=== PATIENT | female | born 1950 | race Caucasian/White ===

== ENCOUNTER 2022-03-24 15:42 | Emergency (ER) | payer MEDICARE, SELFPAY ==
[2022-03-24 15:56] VITALS: BP 169/106; PULSE 66; RESP 22; TEMP 36.9; O2SAT 98; BMI 26.6
--- NOTE | 2022-03-24 16:38 | CRLHL7_ITS ---
For Patients: As a result of the Century Cures Act, medical imaging exams and procedure reports are released immediately into your electronic medical record. You may view this report before your referring provider. If you have questions, please contact your health care provider. Indication: Neck Pain Technique: Volumetric multidetector CT images of the cervical spine were obtained without the administration of IV contrast. Comparison: None available. Findings: The cervical vertebral body heights are grossly maintained with congenital versus surgical fusion of the C5, C6 and C7 levels. There is straightening of the normal cervical lordosis with minimal anterolisthesis of C3 on C4 and C4 on C5. There is no displaced fracture or dislocation. There is mild multilevel degenerative disc disease with disc height loss and marginal osteophyte formation at the C3-C4 and C4-C5 levels. There is moderate to severe degenerative change of the atlantoaxial joint. There is moderate to severe facet arthrosis. The paraspinous soft tissues are grossly within normal limits. Impression: Demonstration of likely prior surgical versus congenital fusion of the C5, C6 and C7 levels. Mild straightening of the normal cervical lordosis without evidence of displaced fracture. Moderate to severe facet arthrosis. Please note that all CT scans at this facility use dose modulation, iterative reconstruction, and/or weight-based dosing when appropriate to reduce radiation dose to as low as reasonably achievable. Dictated by Stephen Huffman MD @ 03/24/2022 6:04:11 PM (Electronically Signed)
--- NOTE | 2022-03-24 16:38 | CRLHL7_ITS ---
For Patients: As a result of the Century Cures Act, medical imaging exams and procedure reports are released immediately into your electronic medical record. You may view this report before your referring provider. If you have questions, please contact your health care provider. INDICATION: Positive D-dimer. TECHNIQUE: CT chest PE was acquired with 95 cc Isovue 370 IV contrast. COMPARISON: None. FINDINGS: Heart and vasculature: Contrast opacification of the pulmonary arterial tree is adequate. No sign of pulmonary embolism. Heart size is normal. Thoracic aorta and pulmonary artery are normal in caliber. Lungs and pleura: No suspicious nodules or infiltrates. Scattered dependent atelectasis tiny 3 millimeter right upper lobe pulmonary nodule. No pleural effusions, pleural thickening, or pneumothorax. Lymph nodes/mediastinum: Mildly prominent right hilar lymph node, likely reactive. Mildly prominent left axillary lymph node. No mediastinal, hilar, or axillary adenopathy. Chest wall: No masses. Upper abdomen: No acute or significant findings. Bones: Degenerative changes of the osseous structures, including the spine. IMPRESSION: No pulmonary embolism as questioned. Tiny 3 millimeter right upper lobe pulmonary nodule. Consider follow-up chest CT in 12 months if patient is deemed high-risk, suggests significant smoking history. Nonspecific mildly prominent left axillary lymph node. Recommend correlation with physical exam. Please note that all CT scans at this facility use dose modulation, iterative reconstruction, and/or weight-based dosing when appropriate to reduce radiation dose to as low as reasonably achievable. Dictated by Kenrick Sanchez MD @ 03/24/2022 5:59:56 PM (Electronically Signed)
[2022-03-24] MEDS: KETOROLAC 30 MG/ML inj IVP (16:54)
[2022-03-24] MEDS: HYDROmorphone 0.5 mg/0.5 ml inj IVP (18:11)
--- NOTE | 2022-03-24 19:15 | ED_ITS ---
HPI - General Adult General Chief complaint: Chest Pain Stated complaint: Short of Breath Time Seen by Provider: 03/24/22 16:29 History of Present Illness HPI narrative: Pt is a 72 year old who recently recovered from COVID 19 who presented to the clinic today with chest and neck pain. Workup in the clinic was unremarkable with the exception of an elevaed D dimer. Pt was sent over for a CT of the chest which is negative for PE. Pt states that her neck is sore as well due to extensive coughing. Pt's CT of the cervical spine also negative for acute fractures or disk herniations. Pt states the pain is diffuse with no orthopnea or PND. It was not felt to be Cardiac in nature. Pt states the pain has been present the last few days. She has been taking tylenol and motrin as needed with no effect. No other significant symptoms. Related Data Home Medications Medication Instructions Recorded Confirmed No Known Home Medications 03/24/22 03/24/22 Allergies Allergy/AdvReac Type Severity Reaction Status Date / Time codeine AdvReac Severe Insomnia Verified 03/24/22 17:06 Review of Systems Status of ROS: Reports: 10 or more systems reviewed and unremarkable except as noted in History and below PFSH PFS Social History Smoking Status: Never smoker Non-prescribed substance use: denies use Exam Narrative: Exam Narrative: EXAM GENERAL: Patient appears comfortable and well. EYES: No scleral icterus. THYROID: no thyroid nodules or thyromegaly. LYMPH: No supraclavicular or cervical lymphadenopathy. SKIN: Visible skin seen during exam normal or with benign process only. EXT: No dependent lower extremity pedal edema. HEART: Regular rate and rhythm with no murmurs, rubs, or gallops. LUNGS: Clear to auscultation bilaterally with no crackles or wheezes. ABD: Soft, non tender, non distended. PSYCH: Good eye contact, speech is not pressured. Const: Vital Signs, click to edit/add: Vital Signs - 24 hr 03/24/22 15:56 Temperature 98.4 F Pulse Rate [Right Pulse Oximeter] 66 Respiratory Rate 22 Blood Pressure [Ri ght Upper Arm] 169/106 H Pulse Oximetry 98 Oxygen Delivery Me thod Room Air Course Course Hospital Course: CT of the chest and cerical spine reviewed with pt. She feels comfortable that no further workup is done. Vital Signs Vital signs: Initial Vital Signs Temperature 98.4 F 03/24/22 15:56 Temperature Source Temporal Artery Scan 03/24/22 15:56 Pulse Rate 66 03/24/22 15:56 Respiratory Rate 22 03/24/22 15:56 Blood Pressure 169/106 H 03/24/22 15:56 Blood Pressure Mean 127 03/24/22 15:56 Blood Pressure Position Sitting 03/24/22 15:56 Pulse Oximetry 98 03/24/22 15:56 Oxygen Delivery Method 03/24/22 15:56 Vital Signs Temperature 98.4 F 03/24/22 15:56 Pulse Rate 66 03/24/22 15:56 Respiratory Rate 22 03/24/22 15:56 Blood Pressure 169/106 H 03/24/22 15:56 Pulse Oximetry 98 03/24/22 15:56 Oxygen Delivery Method 03/24/22 15:56 Temperature 98.4 F 03/24/22 15:56 Pulse Rate 66 03/24/22 15:56 Respiratory Rate 22 03/24/22 15:56 Blood Pressure 169/106 H 03/24/22 15:56 Pulse Oximetry 98 03/24/22 15:56 Oxygen Delivery Method 03/24/22 15:56 Discharge Plan Discharge Clinical Impression: Chest wall pain Patient Disposition: Home, Self-Care Condition: Stable Instructions: Chest Pain (ED) Additional Instructions: [place] as directed Follow up with your doctor as needed Activity Level: No Restrictions Discharge Diet: Regular Prescriptions: No Action No Known Home Medications Follow Up/Referrals: Jamie Bell PA-C [Primary Care Provider] - Stand Alone Forms: MyHealth Info Instructions
== END 2022-03-24 19:33 | disposition home or self-care (01) ==
PROVIDERS: Emergency Provider Internal Medicine; PCP Physician Assistant Medical
DX: R07.89 Other chest pain (principal)
CPT/HCPCS: 71260; 72125; 80053; 80061; 85379; 86141; 96374; 96375; 99283; 99284; J1170; J1885; Q9967

== ENCOUNTER 2022-03-25 20:01 | Emergency (ER) | payer MEDICARE, SELFPAY ==
[2022-03-25 20:38] VITALS: BP 186/84; PULSE 89; RESP 18; TEMP 36; O2SAT 96; BMI 26.6
[2022-03-25 23:43] VITALS: BP 171/91; PULSE 98; O2SAT 96
--- NOTE | 2022-03-26 00:21 | ED_ITS ---
HPI - General Adult General Time Seen by Provider: 00:21 Date Seen: 03/26/22 Chief complaint: Shoulder Injury/Pain Stated complaint: Pain Time Seen by Provider: 03/25/22 23:34 Source: patient and family Mode of arrival: ambulatory Limitations: no limitations History of Present Illness HPI narrative: 72-year-old female who comes in with right neck and arm pain. This is been going on for couple of days. She says COVID and was coughing a lot. Two days ago developed right neck and shoulder pain radiating to the right arm. Was seen at clinic 2 days ago, labs were done and found to have elevated D-dimer. Sent to the emergency department where CT PE protocol was negative. Patient was given on added with improvement of her pain but returned. Took [place] but did have some vomiting with this. Went to clinic yesterday and was re-evaluated CVA IM Toradol with some relief. Also started baclofen and prednisone. Has continued to have pain and so returns to the emergency department. It is sharp pain in the forearm going up to the neck. No relieving or exacerbating factors. Feels like the right hand is weak. Related Data Previous Rx's Medication Instructions Recorded baclofen 5 mg tablet 5 mg PO Q12H #10 tabs 03/25/22 hydrocodone 5 mg-acetaminophen 325 See Rx Instructions PO Q8H PRN 03/25/22 mg tablet pain #30 tabs ondansetron 8 mg disintegrating 8 mg PO Q8-12H PRN nausea and 03/25/22 tablet vomiting 4 days #12 tabs prednisone 10 mg tablets in a dose See Rx Instructions PO .COMPLEX 03/25/22 pack #21 ea Allergies Allergy/AdvReac Type Severity Reaction Status Date / Time codeine AdvReac Severe Insomnia Verified 03/25/22 20:44 Review of Systems Status of ROS: Reports: 10 or more systems reviewed and unremarkable except as noted in History and below PFSH PFSH Social History Smoking Status: Never smoker Non-prescribed substance use: denies use Exam Narrative: Exam Narrative: General: well nourished , NAD Head: Atraumatic and normocephalic ENT: External ears and external nose are normal Eyes: Conjunctiva clear, pupils are equal reactive, external ocular motions are intact Neck: Full spontaneous range of motion of the neck Lungs: No respiratory distress Musculoskeletal: Tenderness of the right trapezius and inferior cervical paraspinous musculature. Neurologic: No gross focal neurologic deficits. Sensation of the right upper extremity intact, manager supplier strength is intact. Skin: No rashes Psych: Mood and affect are appropriate Const: Vital Signs, click to edit/add: Vital Signs - 24 hr 03/25/22 20:38 03/25/22 23:43 Temperature 96.8 F L Pulse Rate [Right Pulse Oximeter] 89 98 Respiratory Rate 18 Blood Pressure [Ri ght Upper Arm] 186/84 H 171/91 H Pulse Oximetry 96 96 Oxygen Delivery Me thod Room Air Room Air Course Course Hospital Course: Patient seen examined, prior records are reviewed. Patient with right neck and arm pain for the last couple of days. On exam, sensation of the right upper extremities intact. Slight weakness of manager supplier although effort is poor, observation only patient moves the arm without difficulty. Symptoms are most consistent with cervical radiculopathy. Patient has already started prednisone, and has had two doses of Toradol. Daughter who is with her is requesting methadone, we discussed that for acute pain this would not be an appropriate starting medication. They are also wondering about admission for pain manag ement. We discussed the Critical bed shortage state wide and that no beds are available except for critically ill patients give fentanyl IM as well as oral Dilaudid and Zofran with goal of adequate pain control for discharge. Patient would benefit from physical therapy and further cervical imaging at some point but this does not need to be done emergently. Reevaluation(s) Reevaluation #1: Patient is requesting discharge. Time: 01:18 Vital Signs Vital signs: Initial Vital Signs Temperature 96.8 F L 03/25/22 20:38 Temperature Source Temporal Artery Scan 03/25/22 20:38 Pulse Rate 89 03/25/22 20:38 Pulse Rhythm 03/25/22 20:38 Respiratory Rate 18 03/25/22 20:38 Blood Pressure 186/84 H 03/25/22 20:38 Blood Pressure Mean 118 03/25/22 20:38 Blood Pressure Position Sitting 03/25/22 20:38 Pulse Oximetry 96 03/25/22 20:38 Oxygen Delivery Method 03/25/22 20:38 Vital Signs Temperature 96.8 F L 03/25/22 20:38 Pulse Rate 89 03/25/22 20:38 Respiratory Rate 18 03/25/22 20:38 Blood Pressure 186/84 H 03/25/22 20:38 Pulse Oximetry 96 03/25/22 20:38 Oxygen Delivery Method 03/25/22 20:38 Temperature 96.8 F L 03/25/22 20:38 Pulse Rate 98 03/25/22 23:43 Respiratory Rate 18 03/25/22 20:38 Blood Pressure 171/91 H 03/25/22 23:43 Pulse Oximetry 96 03/25/22 23:43 Oxygen Delivery Method 03/25/22 23:43 Medical Decision Making Medical Records Medical records reviewed: Yes I reviewed the patient's medical records Lab Data Lab results reviewed: Yes I reviewed the patient's lab results Discharge Plan Discharge Clinical Impression: Cervical radiculopathy Patient Disposition: Home w/ Parent or Adult Condition: Stable Instructions: Cervical Radiculopathy (ED) Additional Instructions: Continue prednisone. Start gabapentin. Prescriptions: No Action hydrocodone-acetaminophen 5-325 mg tablet See Rx Instructions PO Q8H PRN (Reason: pain) Qty: 30 0RF Rx Instructions: 1-2 tabs orally every 8 hours PRN; baclofen 5 mg tablet 5 mg PO Q12H Qty: 10 0RF ondansetron 8 mg tablet,disintegrating 8 mg PO Q8-12H PRN (Reason: nausea and vomiting) 4 Days Qty: 12 0RF prednisone 10 mg tablets,dose pack See Rx Instructions PO .COMPLEX Qty: 21 0RF Rx Instructions: prednisone 10 mg: take 6 tablets (60 mg) on Day 1; 5 tablets (50 mg) on Day 2; then decrease by 1 tablet every day until finished PO Follow Up/Referrals: Jamie Bell PA-C [Primary Care Provider] - Stand Alone Forms: MyHealth Info Instructions
[2022-03-26] MEDS: HYDROmorphone 2 MG TABLET PO (00:31)
[2022-03-26] MEDS: ONDANSETRON ODT 4 MG TAB PO (00:31)
[2022-03-26] MEDS: GABAPENTIN 300 MG CAPSULE PO (00:39)
[2022-03-26] MEDS: fentaNYL 100 MCG/2 ML inj 50 MCG IM (00:39)
--- NOTE | 2022-03-26 02:01 | ED.NURSE ---
prior to discharge patient verbalized pain control concern for home and not a big improvement, MD Moody updated, pt verbalized new rx would be benficial, ordered new rx. pt education on taking next dose 6 hours after the time she got fentanyl, times provided.
[2022-03-26 02:02] VITALS: BP 159/88; PULSE 84; RESP 16; TEMP 37
== END 2022-03-26 01:42 | disposition home or self-care (01) ==
PROVIDERS: Emergency Provider Family Medicine; PCP Physician Assistant Medical
DX: M54.12 Radiculopathy, cervical region (principal)
CPT/HCPCS: 96372; 99283; 99284; A9270; J3010

== ENCOUNTER 2022-03-27 07:00 | Outpatient (CLI) | payer MEDICARE, SELFPAY ==
--- NOTE | 2022-03-27 07:15 | CRLHL7_ITS ---
For Patients: As a result of the Century Cures Act, medical imaging exams and procedure reports are released immediately into your electronic medical record. You may view this report before your referring provider. If you have questions, please contact your health care provider. INDICATION: RIGHT SCAPULA AND TRAPEZIUS SPASM COMPARISON: None. TECHNIQUE: Right upper extremity and neck venous ultrasound performed as well as ultrasound of left internal jugular vein including marques scale/2D, color Doppler, and spectral Doppler imaging including spectral waveform analysis. FINDINGS: The internal jugular, innominate, subclavian, axillary, basilic, cephalic, and brachial veins were patent and negative for thrombus. The left internal jugular vein was also patent and negative for thrombus where seen. Remainder negative. IMPRESSION: No evidence for DVT in the right upper extremity and neck venous system. Dictated by Steven Ovalle MD @ 03/27/2022 9:14:00 AM (Electronically Signed)
== END 2022-03-27 07:01 | disposition home or self-care (01) ==
LOC: US 07:03
PROVIDERS: PCP Physician Assistant Medical; Visit Provider Family Medicine
DX: M79.601 Pain in right arm (principal); M47.22 Other spondylosis with radiculopathy, cervical region
CPT/HCPCS: 93971

== ENCOUNTER 2022-04-07 07:01 | Outpatient (CLI) | payer MEDICARE, SELFPAY ==
--- NOTE | 2022-04-07 07:15 | CRLHL7_ITS ---
For Patients: As a result of the Century Cures Act, medical imaging exams and procedure reports are released immediately into your electronic medical record. You may view this report before your referring provider. If you have questions, please contact your health care provider. HISTORY: Right upper extremity pain. TECHNIQUE: Axial, coronal, and sagittal PD, T1, T2, T2 fat sat weighted sequences of right scapula without contrast. COMPARISON: Shoulder radiographs 03/24/2022. FINDINGS: Exam is limited due to motion artifact. Bone marrow signal is normal. No abnormal signal in visualize muscles or soft tissues. No soft tissue mass within limits of exam technique. Scapula has normal appearance. AC joint degenerative arthrosis. No axillary lymphadenopathy or mass within limits of the exam technique. IMPRESSION: Unremarkable exam. Dictated by Murphy Nichole MD @ 04/07/2022 2:53:05 PM (Electronically Signed)
--- NOTE | 2022-04-07 08:15 | CRLHL7_ITS ---
For Patients: As a result of the Century Cures Act, medical imaging exams and procedure reports are released immediately into your electronic medical record. You may view this report before your referring provider. If you have questions, please contact your health care provider. Indication: Right upper extremity pain, right hand numbness Technique: Multiplanar, multisequence MRI of the cervical spine obtained without contrast. Comparison: CT cervical spine 03/24/2022 Findings: Straightening of the cervical curvature, with bony ankylosis across the C5-7 levels, presumed mature surgical fusion. Grade 1 anterolisthesis at C3-4 and C4-5. Vertebral body heights are maintained. No acute fracture. No aggressive osseous lesion. Mild degenerative disc changes. Partially empty sella configuration. Included posterior fossa structures are otherwise unremarkable. Visualized spinal cord appears normal in course and caliber. No convincing cord signal abnormality. No suspicious findings in the prevertebral or paraspinal soft tissues. Deformity of the thyroid cartilage also presumably postoperative. C2-C3: No significant foraminal or spinal canal stenosis. C3-C4: Anterolisthesis, disc bulge, uncovertebral/facet arthropathy. Moderate bilateral foraminal stenosis. No spinal canal stenosis. C4-C5: Anterolisthesis, uncovertebral/facet arthropathy. Mild left, moderate right foraminal stenosis. No spinal canal stenosis. C5-C6: No significant foraminal or spinal canal stenosis. C6-C7: No significant foraminal or spinal canal stenosis. C7-T1: Facet arthropathy. Mild left, moderate right foraminal stenosis. No spinal canal stenosis. Impression: 1. 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 2. At C3-4, moderate bilateral neural foraminal stenosis. 3. At C4-5, moderate right foraminal stenosis. 4. At C7-T1, moderate right foraminal stenosis. 5. Additional mild foraminal narrowing as detailed. No critical spinal canal stenosis. Dictated by Joi Meier MD @ 04/07/2022 9:30:19 AM (Electronically Signed)
== END 2022-04-07 07:02 | disposition home or self-care (01) ==
LOC: MRI 07:02
PROVIDERS: PCP Physician Assistant Medical; Visit Provider Family Medicine
DX: M79.601 Pain in right arm (principal); M47.22 Other spondylosis with radiculopathy, cervical region
CPT/HCPCS: 72141; 73218; 73221

== ENCOUNTER 2022-06-12 08:45 | Outpatient (RCR) | payer MEDICARE, SELFPAY ==
--- NOTE | 2022-04-08 09:25 | PT.OPE ---
PT [place] [facility] Eval PT [facility] Out[facility] Eval Start: 04/07/22 14:02 Freq: Status: Active Protocol: Document 04/08/22 08:03 LSL (Rec: 04/08/22 08:38 LSL [id number]) E-signed By Tana Raymond PT Physical Therapy Outpatient Evaluation Insurance Information Insurance Name Medicare B Insurance Information/Comments Medicare Advantage [employer] Medical Diagnosis cervical radiculopathy due to DJD, back pain, chest wall pain Treating Diagnosis pain, weakness, impaired ROM Referring MD Mckeon Subjective Subjective Pt. reports she had onset of symptoms since recovering from COVID in the early part of this month. Burning pain began in her arm and the knot underneath my shoulder blade. Now have aching and burning in the arm and my hand won't do what it is supposed to do. Saw Dr. Park and he felt PT was okay. Also saw a DC for dry needling and cupping and it helped temporarily. She felt I may have a rib issue. Oxycodone and ice helped. By end of day feels like a cindi horse. Pt. is retired. 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 R hand dominant. I have hit myself in the head and dropped food that was going to my mouth. Pain Comments 10/10 worst, 2-3/10 best ( mornings) Date of Last Physician Visit 04/07/22 Current Work Status Retired Precautions Treatment Precautions/Contraindications C5-7 fusion 1996 Therapy Limitations/Systems Review Not Limited Objective Range of Motion AROM - Cervical flexion WNL, extension 10%, BLF 10%, B rotation 30% Shoulder L R flexion 142 125 abduction 156 141 IR (HBB) T7 T11 ER 83 83 Elbow WNL Wrist WNL, L fingers 4&5 unable to maintain neutral Strength Cervical flexion and extension and RLF 4/5, LLF 5/5 Shoulder Elbow biceps 5/5, triceps 3+/5 Shoulder - IR 5/5, ER 4/5, deltoid 4+/5 with pain, supraspinatus 5-/5, hor abduction 4/5, hor adduction 4 /5 Wrist - R 3+/5 flexion and extension, L 5/5 Fingers - R Digit 4 extensors 2+/5, Digit 5 extensor 1/5, finger abduction 3+/5, adduction 3-/5 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 is a 72 y/o female who presents with symptoms consistent with a C8-T1 radiculopathy with loss of distal strength in her extensor digitorum minimi, extensor most pronounced with loss of motor coordination in digits 4 and 5 on her R side. She has a history of a C5-7 fusion in 1996 with an early March case of COVID with significant coughing and known C& facet arthropathy with moderate R foraminal stenosis at C7-T1. She has significant guarding along the R upper thoracic area. Follow up should consist of nerve conduction and EMG to determine if everything is at the nerve root or if there is a more peripheral issue as well. Treatment will be geared toward improving strength and function through therex, manual therapy, NM re-ed and modalities prn. Primary Functional Limitations use of R hand, cervical movement, reaching, lifting Plan of Care Rehabilitation Potential Good Physical Therapy Goals SHORT TERM GOALS: (2-3 weeks) 1. Pt. able to extend 4th and 5th fingers to neutral. 2. Pt. to report decreased pain in arm to less than 5/10 throughout day. 3. Pt. able to hold a coffee cup. 4. Pt. able to write with clarity. 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 Pt. able to do her own hair . 2. Pt. 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 3. 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 Coordination/Communication With Referral Source Treatment Plan/Direct Interventions Electrical Stimulation,Ice/ Cold/Vasopneumatic,Joint Mobilization,Manual Therapy, Neuromuscular Re-ed,Self-Care/ Home Management,Therapeutic Exercises Frequency/Duration 2x/week 4 weeks Patient Will Be Discharged From Therapy Completion of LTG(s),Skills Plateau,Independent w/HEP, Independently Progressing Evaluation Billing Untimed Code Treatment Minutes 45 Complexity Moderate Certification Information Initial Certification Date 04/08/22 Ending Certification Date 07/04/22 Provider Signature Shows Agreement With POC & Medical Necessity Physician Signature & Date Requested Please Sign/Date Here Physician Comment/Change : Physician NPI Number #
--- NOTE | 2022-04-17 09:49 | REH.PT ---
Spoke with patient who did contact PCP office yesterday and got number for [facility]. She was able to reach them yesterday and has testing scheduled for 05-01-22.
== END 2022-07-23 17:15 | disposition home or self-care (01) ==
PROVIDERS: PCP Physician Assistant Medical; Visit Provider Family Medicine
DX: M47.22 Other spondylosis with radiculopathy, cervical region (principal); Z51.89 Encounter for other specified aftercare
CPT/HCPCS: 97110; 97140; 97162; 97535

== ENCOUNTER 2022-07-24 08:04 | Outpatient (CLI) | payer MEDICARE, SELFPAY ==
--- NOTE | 2022-07-24 08:15 | CRLHL7_ITS ---
For Patients: As a result of the Century Cures Act, medical imaging exams and procedure reports are released immediately into your electronic medical record. You may view this report before your referring provider. If you have questions, please contact your health care provider. INDICATION: Dysphagia TECHNIQUE: Modified barium swallow. Fluoroscopic time 2 minutes 59 seconds. COMPARISON: None FINDINGS/IMPRESSION: The initiation of the swallowing mechanism is sluggish as is the epiglottis retroversion. Postop changes of cervical spine fusion noted. Aspiration occurred with thin liquid toward the end of the examination. Cough reflex is present. Difficulty initiating the swallowing of barium tablet. The tablet eventually clears with multiple sips of water. No obstruction to the flow of barium. Laryngeal penetration also occurred during the examination. Dictated by Steven Ovalle MD @ 07/24/2022 11:33:29 AM (Electronically Signed)
--- NOTE | 2022-07-24 17:01 | SLP.EVAL ---
Dr. Bell Please review, sign and return Thank you Ana Lilia Young, EMULSION OPERATOR EMULSION OPERATOR Lauri EMULSION OPERATOR Lauri Start: 07/24/22 14:32 Freq: Status: Active Protocol: Document 07/24/22 14:32 HJS (Rec: 07/24/22 14:48 HJS [id number]) E-signed By Ana Lilia Young, JUANA, EMULSION OPERATOR EMULSION OPERATOR System Review History & Reason For Referral Type of Speech Evaluation Modified Barium Swallow Evaluation Rehabilitation Order Evaluation Date of Order 07/10/22 Reason for Referral Difficulty swallowing; aspiration symptoms Medical Diagnosis spinal surgery Treatment Diagnosis dysphagia Patient Orientation Orientation & Mental Status Within normal limits EMULSION OPERATOR Initial Assessment/POC Subjective Information Subjective/Pain Comment Patient independently ambulated to the xray suite. Her is with her. Caregiver's Name Ran - Assessment & Impression Assessment/Impression Patient is a 72 year old female who was seen in the outpatient clinic by this therapist. She exhibited signs of aspiration so a modified barium swallow study was recommended to fully assess pharyngeal function during swallow. She has swallowing difficulty as a result of spinal surgery 3 weeks ago. She has been using thickened liquid and finds that works a little better for her but does not want to stay on thickened liquid. THIN LIQUID Patient took several small sips of thin liquid by cup. She did not have any aspiration until the last trial. She swallowed one time with no aspiration but on the second swallow of the residual she aspirated and coughed immediately. MILDLY THICK LIQUID (NECTAR) Patient took a sip of mildly thick liquid. She swallowed without aspiration. PUREE Patient given a teaspoon of puree. She was able to swallow without aspiration. There was more vallecular residue with the thicker consistency. MUFFIN AND COOKIE WITH BARIUM PUREE Patient given separate trials of muffin and cookie each mixed with barium puree. She was able to chew and swallow with some vallecular residue but no aspiration. BARIUM PILL Patient given a barium pill to simulate taking medication. She took it with water. She had difficulty getting the pill to go down and when it did it lodged in the vallecula . She eventually was able to get it to go down but afterwards reported that it still felt it was in her esophagus. The pill was not viewed on fluoroscopy. IMPRESSIONS AND RECOMMENDATIONS Patient exhibited one incidence of aspiration on her final swallow on thin liquid. She swallowed the majority of the bolus on the first swallow and then when she swallowed again on the residue she aspirated. That was the only time aspiration occurred during the test today. She has decreased movement of the epiglottis resulting in residue in the vallecula especially with thicker consistencies and the barium pill lodged in the vallecula requiring several sips of water and swallows to get down . Recommend patient eat softer food, small bites, chew well and decrease talking and distractions when eating. Recommend up to 5 session of outpatient speech therapy to teach pharyngeal strengthening exercises and safe swallowing strategies. The results and images were reviewed with patient and her and questions answered. Functional Limitations & Outcome/Goals Goals/Functional Outcomes HALFWAY GOAL Patient will consume least restrictive diet without signs of aspiration. SHORT TERM GOALS Patient will be able to complete pharyngeal strengthening exercises daily per patient report. Intervention Plan & Frequency Intervention Plan Recommend up to 5 session of outpatient speech therapy to teach pharyngeal strengthening exercises and safe swallowing strategies. Discharge Plan Patient Will be Discharged from Therapy Completion of LTG(s),Skills Plateau,Independently Progressing Therapist Signature & License # I Certify That Therapy Services Provided, Therapy Plan Established Therapist Signature & License Number Ana Lilia Young, [facility]-EMULSION OPERATOR, # [id number] Certification Date Date of First Visit for Therapy 07/10/22 Recertification Due Date 10/07/22 Physician Signature Signature of Physician Indicates Treatment Plan,Certification Plan,Medically Needed Services Physician Signature & Date Required Please Sign/Date Here Speech/Language Pathology Billing Units Billing Units Eval Swallow Motion Fluoro 1
== END 2022-07-24 08:05 | disposition home or self-care (01) ==
LOC: RAD 08:05
PROVIDERS: PCP Physician Assistant Medical; Visit Provider Physician Assistant Medical
DX: R13.10 Dysphagia, unspecified (principal)
CPT/HCPCS: 74230; 92611

== ENCOUNTER 2022-08-27 14:35 | Outpatient (CLI) | payer MEDICARE, SELFPAY ==
--- NOTE | 2022-08-27 15:20 | CRLHL7_ITS ---
For Patients: As a result of the Century Cures Act, medical imaging exams and procedure reports are released immediately into your electronic medical record. You may view this report before your referring provider. If you have questions, please contact your health care provider. BILATERAL SCREENING MAMMOGRAM WITH COMPUTER-AIDED DETECTION AND TOMOSYNTHESIS TECHNIQUE: CC and MLO views were obtained. These mammographic images have been obtained using full-field digital technique. These mammographic images were interpreted with the benefit of computer-aided detection. Breast tomosynthesis was used in this interpretation. COMPARISON FILM: 06/27/20, 05/27/18, 12/18/16. FINDINGS: There are scattered areas of fibroglandular density. IMPRESSION: There is no radiographic evidence for malignancy. ASSESSMENT: BI-RADS Category 2: Benign RECOMMENDATION: Routine screening mammogram in 1 year. A lay language report of this examination will be provided to the patient. STEVEN REDDY M.D. Diagnostic Radiologist [email or web address] Transcribed: 08/28/2022, 2:[address]/Dictated by: Steven Reddy MD @ 08/28/2022 9:46:00 AM (Electronically Signed)
== END 2022-08-27 14:36 | disposition home or self-care (01) ==
PROVIDERS: PCP Physician Assistant Medical; Visit Provider Physician Assistant Medical
DX: Z12.31 Encounter for screening mammogram for malignant neoplasm of breast (principal)
CPT/HCPCS: 77063; 77067

== ENCOUNTER 2022-09-29 15:15 | Outpatient (RCR) | payer MEDICARE, SELFPAY | END 2022-09-29 16:32 | disposition home or self-care (01) | PROVIDERS: PCP Physician Assistant Medical; Visit Provider Hospitalist | DX: R13.10 Dysphagia, unspecified (principal); Z51.89 Encounter for other specified aftercare | CPT/HCPCS: 92526; 92610; 97110; 97112; 97140; 97162 ==